=== PATIENT | male | born 1940 | race Caucasian/White ===

== ENCOUNTER → 2019-04-21 | Outpatient (CLI) | payer MEDICARE ==
--- NOTE | 2019-04-21 13:07 | REP ---
Two-view chest: 04/21/2019. Indication: Dyspnea. Comparison: None. Findings: Left lower lobe linear atelectasis is noted. The lungs are free of airspace consolidation. There is no pleural effusion or pneumothorax. Postoperative sequelae are present including median sternotomy and right glenohumeral joint replacement. The cardiac silhouette is not enlarged. The lungs are hyperinflated. Impression: No acute cardiopulmonary process. Electronically Signed by Emiliano Goodwin DO 04/21/2019 12:58 P
== END ==
LOC: M LRY 12:41
PROVIDERS: ATTEND Nurse Practitioner Family
DX: J98.11 Atelectasis (principal); R06.89 Other abnormalities of breathing
CPT/HCPCS: 71046; G0463